=== PATIENT | female | born 1960 | race African-American/Black ===

== ENCOUNTER 2020-03-22 13:56 | Emergency (ER) | payer BC ==
--- NOTE | 2020-03-22 16:00 | ER Document Report ---
ED Medical Screen (RME) - General Chief Complaint: Weakness Stated Complaint: RIGHT ARM TINGLING, NUMBNESS Time Seen by Provider: 03/22/20 15:48 Primary Care Provider: CLARISA MAURER MD [Primary Care Provider] - Follow up as needed Notes: HPI: 60-year-old female presenting to the emergency department after 1 month of increasing fatigue and tiredness. No specific cough no fever no abdominal pain nausea vomiting dark tarry stools. Patient has been following with her PCP who pulled her off of methotrexate which she was taking for hand and foot issues 1 month ago because her platelet count was very low. She reports no rectal bleeding or other bleeding issues. States that her PCP has done other blood work on her but she does not know results. States that her PCP referred her over here today for further testing. Patient states she had a negative COVID test this week although she had no other symptoms such as fever loss of taste or cough. PHYSICAL EXAMINATION: Unable to find any notes that her PCP called in specific orders for lab work. Patient has vague nonspecific complaints, lung sounds are clear to auscultation no abdominal pain on palpation. Appears mildly tachycardic on auscultation at this time. There is trace bilateral lower extremity edema. I have greeted and performed a rapid initial assessment of this patient. A comprehensive ED assessment and evaluation of the patient, analysis of test results and completion of medical decision making process will be conducted by an additional ED providers. TRAVEL OUTSIDE OF THE [place] IN LAST 30 DAYS: No - Related Data Allergies/Adverse Reactions: iodine Allergy (Verified 03/22/20 15:36) olmesartan [From Benicar] Allergy (Verified 03/22/20 15:36) Penicillins Allergy (Verified 03/22/20 15:36) Home Medications: carvedilol. folic acid. duloxetine. cipro. nifedipine. megesyrol. cetirizine Past Medical History - Social History Chew tobacco use (# tins/day): No Frequency of alcohol use: None Drug Abuse: None Physical Exam - Vital signs Vitals: Temp Pulse Resp BP Pulse Ox 98.7 F 103 H 20 121/58 L 99 03/22/20 14:07 03/22/20 14:07 03/22/20 14:07 03/22/20 14:07 03/22/20 14:07 Course - Vital Signs Vital signs: Temp Pulse Resp BP Pulse Ox 98.7 F 103 H 20 121/58 L 99 03/22/20 15:37 03/22/20 14:07 03/22/20 14:07 03/22/20 14:07 03/22/20 14:07 Doctor's Discharge - Discharge Referrals: CLARISA MAURER MD [Primary Care Provider] - Follow up as needed
--- NOTE | 2020-03-22 16:24 | RADIOLOGY REPORT (SQ) ---
EXAM DESCRIPTION: CHEST 2 VIEWS IMAGES COMPLETED DATE/TIME: 03/22/2020 4:12 pm REASON FOR STUDY: fatigue COMPARISON: None. EXAM PARAMETERS: NUMBER OF VIEWS: two views TECHNIQUE: Digital Frontal and Lateral radiographic views of the chest acquired. RADIATION DOSE: NA LIMITATIONS: none FINDINGS: LUNGS AND PLEURA: No opacities, masses or pneumothorax. No pleural effusion. MEDIASTINUM AND HILAR STRUCTURES: There is mild hilar fullness bilaterally. HEART AND VASCULAR STRUCTURES: Heart normal size. No evidence for failure. BONES: No acute findings. HARDWARE: None in the chest. OTHER: No other significant finding. IMPRESSION: Mild hilar fullness. No other significant finding. TECHNICAL DOCUMENTATION: JOB ID: [id number] 2010 [employer]- All Rights Reserved Reading location - IP/workstation name: [email or web address]
[2020-03-22 16:51] LABS: ABSOLUTE BASOPHILS # (AUTO) 0.1 10^3/uL (0.0-0.2); ABSOLUTE EOSINOPHILS # (AUTO) 0.2 10^3/uL (0.0-0.6); ABSOLUTE LYMPHOCYTES (AUTO) 1.2 10^3/uL (0.5-4.7); ABSOLUTE MONOCYTES (AUTO) 1.7 10^3/uL (0.1-1.4); ABSOLUTE NEUT (AUTO) 7.6 10^3/uL (1.7-8.2); BASOPHILS % (AUTO) 0.6 % (0-2); EOSINOPHILS % (AUTO) 1.8 % (0-6); HEMATOCRIT 36.2 % (36.0-47.0); HEMOGLOBIN 12.4 g/dL (12.0-15.5); LYMPHOCYTES % (AUTO) 11.4 % (13-45); MEAN CORPUSCULAR HEMOGLOBIN 29.4 pg (27.0-33.4); MEAN CORPUSCULAR HGB CONC 34.3 g/dL (32.0-36.0); MEAN CORPUSCULAR VOLUME 86 fl (80-97); MONOCYTES % (AUTO) 15.5 % (3-13); PLATELET COUNT 971 10^3/uL (150-450); RED BLOOD COUNT 4.22 10^6/uL (3.72-5.28); RED CELL DISTRIBUTION WIDTH 14.6 % (11.5-14.0); SEGMENTED NEUTROPHILS % (AUTO) 70.7 % (42-78); TOTAL CELLS COUNTED % (AUTO) 100 %; WHITE BLOOD COUNT 10.8 10^3/uL (4.0-10.5)
[2020-03-22 17:09] LABS: ALBUMIN 3.8 g/dL (3.5-5.0); ALKALINE PHOSPHATASE 86 U/L (38-126); ANION GAP 11 (5-19); ASPARTATE AMINO TRANSFERASE 41 U/L (14-36); BILIRUBIN,DIRECT 0.1 mg/dL (0.0-0.4); BILIRUBIN,TOTAL 0.8 mg/dL (0.2-1.3); BLOOD UREA NITROGEN 8 mg/dL (7-20); CARBON DIOXIDE 22 mmol/L (22-30); CHLORIDE 97 mmol/L (98-107); GLUCOSE 113 mg/dL (75-110); POTASSIUM 3.9 mmol/L (3.6-5.0); TOTAL PROTEIN 7.3 g/dL (6.3-8.2)
[2020-03-22 17:14] LABS: APPEARANCE,URINE CLEAR; BILIRUBIN,URINE NEGATIVE (NEGATIVE); COLOR,URINE YELLOW; GLUCOSE, URINE NEGATIVE (NEGATIVE); KETONES,URINE NEGATIVE (NEGATIVE); LEUKOCYTE ESTERASE,URINE NEGATIVE (NEGATIVE); NITRITE,URINE NEGATIVE (NEGATIVE); PROTEIN,URINE NEGATIVE (NEGATIVE); URINE SPECIFIC GRAVITY 1.008; UROBILINOGEN,URINE NEGATIVE mg/dL (<2.0)
[2020-03-22 17:20] LABS: NT PRO BNP 199 pg/mL (<125)
[2020-03-22 17:21] LABS: TROPONIN I < 0.012 ng/mL
--- NOTE | 2020-03-22 19:34 | EKG REPORT ---
SEVERITY:- NORMAL ECG - SINUS RHYTHM : Confirmed by: Tari See MD 22-Mar-2020 19:33:30
--- NOTE | 2020-03-22 20:20 | RADIOLOGY REPORT (SQ) ---
EXAM DESCRIPTION: [facility]: CT HEAD WITHOUT IV CONTRAST CLINICAL HISTORY: 60 years Female; numbness and tingling; TECHNIQUE: Noncontrast CT head. All CT scans at this facility use dose modulation, iterative reconstruction, and/or weight based dosing when appropriate to reduce radiation dose to as low as reasonably achievable. COMPARISON: None. FINDINGS: Hdez matter, white matter, ventricles, and cisterns are within normal limits. No acute hemorrhage or mass effect. Visualized portions of paranasal sinuses and mastoids are clear. Visualized portions of the calvarium are within normal limits. IMPRESSION: 1. No acute intracranial findings.
--- NOTE | 2020-03-22 21:29 | ER Document Report ---
ED General - General Chief Complaint: Weakness Stated Complaint: RIGHT ARM TINGLING, NUMBNESS Time Seen by Provider: 03/22/20 15:48 Primary Care Provider: CLARISA MAURER MD [Primary Care Provider] - Follow up as needed TRAVEL OUTSIDE OF THE [place] IN LAST 30 DAYS: No - HPI Notes: Patient is a 60-year-old female who presents to the emergency department for evaluation. She is an extremely poor historian. Patient states that she saw her primary care provider a month ago. She states she was on methotrexate because she had "splits in her hands." She had lab work done by her primary care provider last month which showed a high platelet count, her methotrexate was decreased. She states that since then she has been having right arm and right leg numbness, more days than not. She states that she just does not feel well. Her mouth is dry. She called her primary care provider, and he told her to go to the emergency room and get blood work. There was no indication of what blood work was expected. - Related Data Allergies/Adverse Reactions: iodine Allergy (Verified 03/22/20 15:36) olmesartan [From Benicar] Allergy (Verified 03/22/20 15:36) Penicillins Allergy (Verified 03/22/20 15:36) Home Medications: carvedilol. folic acid. duloxetine. cipro. nifedipine. megesyrol. cetirizine Past Medical History - General Information source: Patient - Social History Smoking Status: Never Smoker Chew tobacco use (# tins/day): No Frequency of alcohol use: None Drug Abuse: None Family History: Reviewed & Not Pertinent, DM, Hypertension Patient has homicidal ideation: No - Past Medical History Cardiac Medical History: Reports: Hx Hypercholesterolemia, Hx Hypertension Pulmonary Medical History: Reports: Hx Asthma GI Medical History: Reports: Hx Gastroesophageal Reflux Disease Past Surgical History: Reports: Hx Section Review of Systems - Review of Systems Constitutional: See HPI Neurological/Psychological: See HPI -: Yes All other systems reviewed and negative Physical Exam - Vital signs Vitals: Temp Pulse Resp BP Pulse Ox 98.7 F 103 H 20 121/58 L 99 03/22/20 14:07 03/22/20 14:07 03/22/20 14:03/22/20 14:03/22/20 14:07 - Notes Notes: Vital signs reviewed, please refer to chart. Head is normocephalic, atraumatic. Pupils equal round, reactive to light. Neck is supple without meningismus. Heart is regular rate and rhythm. Lungs are clear to auscultation bilaterally. Abdomen is soft, nontender, normoactive bowel sounds throughout. Extremities without cyanosis, clubbing. Posterior calves are nontender. Peripheral pulses are equal. Skin is warm and dry. There was patient is awake, alert, oriented x3. Cranial nerves II - XII are grossly intact without focal neurological deficits. Strength is plus 5 out of 5 bilateral upper and lower extremities. Sensation is intact. Reflexes symmetrical. Intact [id number], rapid alternating movements, [id number]. Is awake, alert, neurological exam is nonfocal. Course - Re-evaluation Re-evalutation: 03/22/20 21:33 Patient presents to the emergency department for evaluation. She is a very vague and poor historian. Her laboratory investigations show mild hyponatremia, a significant thrombocytosis. I do not have any old labs to compare. The patient is stable. She has normal neurological exam here. Her CT scan is unremarkable. I am attempting to contact her primary care provider for further clarification. 03/22/20 22:[address] Maurer. He states that the patient has had vague complaints for some time. He is aware of what is going on, aware of her abnormal labs. He does not have anything additional to add at this time. He will see her in the office in follow-up. - Vital Signs Vital signs: Temp Pulse Resp BP Pulse Ox 98.7 F 103 H 20 121/58 L 99 03/22/20 15:37 03/22/20 14:07 03/22/20 14:07 03/22/20 14:07 03/22/20 14:07 - Laboratory Result Diagrams: 03/22/20 16:05 03/22/20 16:05 Laboratory results interpreted by me: 03/22/20 03/22/20 03/22/20 16:05 16:05 16:05 WBC 10.8 H RDW 14.6 H Plt Count 971 H Lymph % (Auto) 11.4 L Mellette % (Auto) 15.5 H Absolute Monos (auto) 1.7 H Sodium 129.7 L Chloride 97 L Glucose 113 H Calcium 11.0 H AST 41 H ALT 40 H NT-Pro-B Natriuret Pep 199 H Urine Blood 03/22/20 16:05 WBC RDW Plt Count Lymph % (Auto) Mellette % (Auto) Absolute Monos (auto) Sodium Chloride Glucose Calcium AST ALT NT-Pro-B Natriuret Pep Urine Blood SMALL H - Diagnostic Test Radiology reviewed: Reports reviewed Radiology results interpreted by me: 03/22/20 21:33 Chest X-Ray 03/22/20 15:57 IMPRESSION: Mild hilar fullness. No other significant finding. Head CT 03/22/20 19:48 IMPRESSION: 1. No acute intracranial findings. - EKG Interpretation by Me Additional EKG results interpreted by me: 03/22/20 21:33 Sinus mechanism with rate 96 bpm. Normal axis and intervals. No acute ST changes concerning for ischemia or infarction. Discharge - Discharge Clinical Impression: Thrombocytosis, Numbness and tingling of right arm and leg, Hyponatremia Condition: Stable Disposition: HOME, SELF-CARE Instructions: Hyponatremia ([facility]), Numbness or Paresthesia ([facility]) Additional Instructions: No clear cause was found for your symptoms today. Your platelets were high again today, your sodium was mildly low. Please follow-up with your primary care provider next week. Continue your home medications as prescribed. Return to the emergency department with worsening or new concerning symptoms of any sort. Referrals: CLARISA MAURER MD [Primary Care Provider] - Follow up as needed
[2020-03-22 22:54] VITALS: BP 112/62
== END 2020-03-22 22:54 | disposition home or self-care (01) ==
LOC: ER 13:56
DX: D47.3 Essential (hemorrhagic) thrombocythemia (principal); E87.1 Hypo-osmolality and hyponatremia; R20.0 Anesthesia of skin; R20.2 Paresthesia of skin; R68.2 Dry mouth, unspecified; I10 Essential (primary) hypertension; J45.909 Unspecified asthma, uncomplicated; Z79.899 Other long term (current) drug therapy; Z79.2 Long term (current) use of antibiotics; Z88.0 Allergy status to penicillin; Z88.8 Allergy status to other drugs, medicaments and biological substances
CPT/HCPCS: 36415; 70450; 71046; 80053; 81001; 83735; 83880; 84443; 84484; 85025; 93005; 93010; 99284